=== PATIENT | female | born 1970 | race Asian ===

== ENCOUNTER 2016-12-10 18:35 | Emergency (ER) | payer MEDICAID ==
[~2016-12-10] VITALS: Ht 160 cm; Wt 59.4 kg
[2016-12-10 19:59] VITALS: BP 131/84
== END 2016-12-10 20:02 | disposition home or self-care (01) ==
LOC: ED 19:40
DX: M94.0 Chondrocostal junction syndrome [Tietze] (principal); J45.990 Exercise induced bronchospasm; I25.2 Old myocardial infarction
CPT/HCPCS: 71020; 93005; 99284